=== PATIENT | male | born 1995 | race Caucasian/White ===

== ENCOUNTER 2016-12-17 20:16 | Emergency (ER) | payer BC, OTHER ==
[~2016-12-17] VITALS: Ht 185.4 cm; Wt 83.0 kg
[2016-12-17 20:18] VITALS: TEMP 36.6; Ht 185.4 cm; Wt 83.0 kg
[2016-12-17] MEDS ORDERED: XYLOCAINE 1%/SOD BICARB 20 ML VIAL INFIL ONE (20:45)
[2016-12-17] MEDS ORDERED: DIPHTHERIA/TETANUS/PERTUSSIS 0.5 ML SYR/VIAL IM. ONE (20:45)
[2016-12-17 21:17] VITALS: BP 112/68; PULSE 62; O2SAT 96
--- NOTE | 2016-12-17 21:20 | EMERGENCY ROOM VISIT NOTE ---
History First contact with patient: 20:28 Chief Complaint: LACERATION/CUT (NON-SUTURE) Stated Complaint: CUT R MIDDLE FINGER Nursing Triage Summary: Patient reports that he cut his right middle finger with a butter knife about 1 hour [employer]. History of Present Illness The patient is a 21 year old male who presents to the Emergency Room with complaints of a laceration to his right third finger while attempting to open a plastic bag with a butter knife. The patient denies any significant bleeding, loss of function, paresthesias or numbness of the finger. The patient is right- hand-dominant. He rates his discomfort a 4 out of 10. Patient is uncertain of his last tetanus immunization. Review of Systems 6 system review was performed and was negative except for pertinent positives and negatives as indicated in history of present illness Past Medical/Surgical History Medical Problems: (1) No significant past medical history Surgical Problems: (1) No history of previous surgery Family History FH: diabetes mellitus Social History Smoking Status: Current Some Day Smoker Alcohol Use: occasionally Marital Status: single Occupation Status: employed Current/Historical Medications No Active Prescriptions or Reported Meds Allergies Coded Allergies: No Known Allergies (Unverified , 12/17/16) Physical Exam Vital Signs Date Time Temp Pulse Resp B/P Pulse Ox O2 Delivery O2 Flow Rate FiO2 12/17/16 20:18 36.6 67 18 140/94 96 Room Air Physical Exam CONSTITUTIONAL: Healthy and well nourished. Alert and oriented X 3 with positive affect. HEENT: Normocephalic, atraumatic. Pupils equal, round and reactive. MUSCULOSKELETAL: Examination of the right third finger shows a 1 cm laceration across the radial aspect of the middle phalanx. Patient is able to flex the finger against resistance. Capillary refill is less than 2 seconds. INTEGUMENTARY: No rash or other significant dermatologic conditions noted. NEUROLOGIC: Right third finger is sensory intact. Medical Decision & Procedures Procedure Laceration repair was performed under local anesthesia after receiving verbal consent from the patient. Using buffered 1% lidocaine without epinephrine, good local anesthesia was administered. The wound was then peripherally cleansed with iodine, then copiously pressure irrigated with normal saline. Exploration of the wound does not show any obvious involvement of the underlying vasculature, nerves or tendons. The wound was then approximated using 5-0 nylon simple interrupted sutures. Bacitracin dressing and metal splint were applied. The patient was also administered Adacel IM. ED Course Patient history and physical exam were performed. Nurse's notes were reviewed. The patient refused any analgesics while in the emergency department. The patient was provided additional verbal and written wound care instructions. Ice and elevation for swelling. Ibuprofen or Tylenol if needed for additional pain relief. Suture removal in 12-14 days, and seek reevaluation sooner for any signs of wound infection. The patient was also provided a metal splint to wear when active to avoid any undue stress on the wound and sutures. The patient was happy with plan of care, voiced understanding of all discharge instructions, and denied any pain at the conclusion of my exam. Impression Primary Impression: Laceration of right middle finger Departure Information Dispostion Home / Self-Care Prescriptions No Active Prescriptions or Reported Meds Forms HOME CARE DOCUMENTATION FORM, IMPORTANT VISIT INFORMATION Patient Instructions My [facility] Additional Instructions Keep wound clean and dry. Do not allow any crusting or dried blood to accumulate on sutures. If this occurs, use a 1:1 solution of hydrogen peroxide/ water on a Q-tip to clean the wound. Use an antibiotic ointment for 3-4 days, then let wound dry. Suture removal in 12-14 days. Return sooner for any signs of infection (increasing redness, swelling, drainage). Ice and elevate for swelling and pain. Ibuprofen 600 mg and/or Tylenol 1000 mg every 6 hrs as needed for pain.
== END 2016-12-17 21:17 | disposition home or self-care (01) ==
LOC: C.EDB 20:18 → C.EDD 21:17
DX: S61.210A Laceration without foreign body of right index finger without damage to nail, initial encounter (principal); F17.200 Nicotine dependence, unspecified, uncomplicated; Z83.3 Family history of diabetes mellitus; W26.0XXA Contact with knife, initial encounter